=== PATIENT | male | born 1955 | race Caucasian/White ===

== ENCOUNTER 2022-10-20 12:23 | Emergency (ER) | payer MEDICARE, SELFPAY ==
--- NOTE | 2022-10-20 12:32 | ED.BACK ---
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 Patient denies bowel or bladder incontinence. Denies saddle anesthesia. No numbness/tingling in lower legs. No fevers, chills. Taking tylenol and using salon pas patches with continued pain. Last Saturday was cleaning his bathtub, bending down when he felt pain in his lower back. Pain is worsened with when he stands to walk. No pain with rest. Related Data Previous Rx's Medication Instructions Recorded cyclobenzaprine 10 mg tablet 10 mg PO Q8H PRN muscle spasm #15 10/20/22 tabs lidocaine 5 % topical patch 1 patch topical DAILY #15 ea 10/20/22 (Lidoderm) naproxen 500 mg tablet 500 mg PO BID PRN pain #30 tabs 10/20/22 Allergies Allergy/AdvReac Type Severity Reaction Status Date / Time No Known Allergies Allergy Verified 10/20/22 13:32 Review of Systems Review of Systems: Yes all other systems are reviewed and are negative Constitutional: Constitutional: Reports no additional constitutional complaints, Denies body ache(s), Denies chills, Denies fever(s), Denies headache(s) and Denies weakness Eyes: Eyes: Reports no additional eye complaints and Denies change in vision ENT: Reports system reviewed and no additional complaints, except as documented, Denies dizziness, Denies headache(s), Denies nasal congestion, Denies nasal discharge and Denies neck pain Cardiovascular: Cardiovascular: Reports no additional cardiovascular complaints, Denies chest pain, Denies leg edema and Denies dyspnea Respiratory: Respiratory: Reports no additional respiratory complaints, Denies cough and Denies dyspnea Gastrointestinal: Gastrointestinal: Reports no additional gastrointestinal complaints, Denies abdominal pain, Denies diarrhea, Denies nausea and Denies vomiting Genitourinary: Genitourinary: Denies urinary incontinence Musculoskeletal: Musculoskeletal: Reports no additional musculoskeletal complaints, Reports back pain, Denies arthralgias, Denies joint swelling, Denies neck pain, Denies numbness, Reports radiating pain into limb and Denies tingling Integumentary/Breasts: Skin/Breast: Reports system reviewed and no additional complaints, except as docu and Denies rash Neurologic: Reports system reviewed and no additional complaints, except as documented, Denies Abnormal speech present, Denies dizziness, Denies headache(s), Denies numbness, Denies tingling and Denies weakness PMFSH Past Medical History Attestation statement: The following information was validated with the patient. Source: old records reviewed and nursing notes reviewed Social History Social History Smoked in Last 30 Days: No Use of substances other than those prescribed or required for medical reasons: No Advance Directives: No Advance Directives Information Provided: No Physical Exam Vital Signs: Vital Signs: Last Vital Signs Temp 98.1 F 10/20/22 13:49 Pulse 87 10/20/22 13:49 Resp 16 10/20/22 13:49 BP 145/85 H 10/20/22 13:49 Pulse Ox 96 10/20/22 13:49 O2 Del Method Room Air 10/20/22 13:49 BMI result Body Mass Index 25.5 Const: General: cooperative, healthy appearing, comfortable and no acute distress Orientation/consciousness: patient oriented x3 Limitations: no limitations HEENT: Head: Yes normal to inspection Ears: hearing grossly normal bilaterally General nose exam: Normal external nose present Face and sinus: Yes normal facial exam Mouth: Normal oral and palatal mucosa present Throat: Yes posterior oropharynx normal Eyes: General: appearance normal, both eyes and all related structures Pupils: Equal, round and reactive pupils present Neck: Neck: Yes normal visual inspection Chest: Chest palpation & inspection: normal inspection of the chest Resp: Effort & Inspection: normal respiratory effort Auscultation: clear to auscultation bilaterally Cardio: Rate: regular rate Rhythm: regular rhythm Peripheral pulses: Peripheral pulses 2+ throughout GI: Inspection: Yes normal to inspection Palpation (GI): Soft to palpation and nontender Auscultation: normal bowel sounds Back/Spine/Pelvis: Other: Lumbar TTP Pain with bilateral straight leg raise Thoracic/Lumbar Spine: thoracic and lumbar spine normal to inspection Skin: General skin exam: no rashes or lesions noted Neuro: General: patient oriented x3, no focal motor deficits and normal sensation to monofilament Cranial nerves: Yes CN's II-XII intact bilaterally, Yes Equal, round and reactive pupils present, Yes Bilaterally intact EOM present, Yes Nystagmus not present, Yes Normal facial strength present and Yes Midline tongue present Cognition (Neuro): normal cognition Speech: No Abnormal speech present Motor exam (neuro): 5/5 motor strength present throughout Sensory Exam: Normal double simultaneous stimulation for sensation Deep tendon reflexes (DTR's): Right patellar reflex intensity grade: 2+ and Left patellar reflex intensity grade: 2+ Extrem: General: Yes normal to inspection, Yes no pedal edema and Yes no calf tenderness Course Course Course Narrative: RME: 67yo Albanian speaking M w/PMHx DM, HTN, HLD, prior back injury, c/o acute on chronic low back pain since Saturday s/p cleaning bathroom and bending down. Reports weakness from waist down. Denies incontinence/retention, abdominal pain, fever/chills. Took OTC meds w/o relief. Patient was seen at [facility] ED yesterday however LWT'd due to wait time Patient in wheelchair in triage, ambulating minimally w/pain and assistance. Lives home alone Full HPI, ROS and PE to be performed by primary ED provider. Reevaluation(s) Reevaluation #1: Patient feels improved after receiving Toradol and Flexeril. He was able to ambulate a short distance in the room. I will discharge him home with NSAIDs, Flexeril, medicated patches with recommendations to follow-up with his primary care doctor outpatient. Reviewed worrisome signs and symptoms of when to return to the emergency room. Comfortable plan for discharge home. Medications Administered Discontinued Medications Generic Name Dose Route Start Last Admin Trade Name Howie PRN Reason Stop Dose Admin Cyclobenzaprine HCl 10 mg 10/20/22 13:32 10/20/22 13:38 Cyclobenzaprine Hcl 10 Mg Tablet PO 10/20/22 13:33 10 mg ONCE ONE Administration Ketorolac Tromethamine 60 mg 10/20/22 13:32 10/20/22 13:37 Ketorolac Tromethamine 60 Mg/2 Ml Vial IM 10/20/22 13:33 60 mg ONCE ONE Administration Medical Decision Making Medical Decision Making MDM Narrative: 67yo male with history of herniated discs, NIDDM, HTN, HLD here with one week of lower back pain with radiation to both legs with weakness after cleaning his tub. No neuro deficits or red flag symptoms On exam TTP to lumbar spine Likely herniated disc/lumbar radiculopathy No fall or trauma to suggest bony abnormality and need for x-ray Would likely benefit from outpatient MRI Will provide analgesia and re-assess Differential Diagnosis Differential Diagnoses: The differential diagnosis associated with the presentation includes herniated discs, OA Caude equina/cord compression, epidural abscess, malignancy-less likely with no reports of fevers, chills, motor loss, saddle anesthesia, incontinence AAA, renal colic pyelo Tests considered The following testing was considered but not selected: MRI lumbar spine-no neuro deficits or red flag symptoms to suggest need for emergent MRI Discharge Plan Discharge Clinical Impression: Lumbar radiculopathy Patient Disposition: Home, Self-Care Instructions: Lumbar Radiculopathy (ED) Additional Instructions: heat or ice. gentle stretching. No heavy lifting or bending. follow-up with your pcp as you may need an outpatient mri. return for fever, incontinence of urine/stools, numbness in the groin. calor o hielo. estiramiento suave. Sin levantar objetos pesados ??ni agacharse. manpreet un seguimiento con tabares pcp, ya que es posible que necesite torsten resonancia magn?josette ambulatoria. volver por fiebre, incontinencia de orina/heces, entumecimiento en la peterson. Prescriptions: New naproxen 500 mg tablet 500 mg PO BID PRN (Reason: pain) Qty: 30 0RF cyclobenzaprine 10 mg tablet 10 mg PO Q8H PRN (Reason: muscle spasm) Qty: 15 0RF lidocaine [Lidoderm] 5 % adhesive patch,medicated 1 patch topical DAILY Qty: 15 0RF Rx Instructions: leave on most painful area for up to 12 hrs Referrals: Physician,None [Primary Care Provider] - 1 week Print Language: Albanian
[2022-10-20 12:36] VITALS: BP 126/78; PULSE 90; RESP 16; TEMP 36.7; O2SAT 100; BMI 25.5
[2022-10-20 13:49] VITALS: BP 145/85; PULSE 87; RESP 16; TEMP 36.7; O2SAT 96
[2022-10-20 15:00] VITALS: BP 128/76; PULSE 83; RESP 17; O2SAT 97
== END 2022-10-20 15:02 | disposition home or self-care (01) ==
PROVIDERS: Emergency Provider Emergency Medicine
DX: M54.16 Radiculopathy, lumbar region (principal); M54.50 Low back pain, unspecified
CPT/HCPCS: 96374; 99284; J1885